=== PATIENT | female | born 2005 | race Caucasian/White ===

== ENCOUNTER 2024-08-03 06:21 | Day surgery (SDC) | payer BC, SELFPAY ==
[2024-08-03] VITALS (15 sets, daily range): BP systolic 107–133; BP diastolic 49–73; BMI 30.4
[2024-08-03] MEDS: CELEBREX 200 MG PO (14:40)
[2024-08-03] MEDS: TYLENOL 1000 MG PO (14:41)
[2024-08-03] MEDS: ROXICODONE 5 MG PO ×2 (20:50→23:54)
--- NOTE | 2024-08-03 21:43 | W.PN.SURGUPD ---
Surgical Update
Surgical Update
18 yo F s/p R ankle fracture ORIF, post op admitted for pain control
-Ancef while inpatient
-Strict NWB to RLE
-PT/OT
-Dressings to remain C/D/I
-Anticipate DC pending pain control and PT eval
--- NOTE | 2024-08-03 21:55 | SUR.PHASEI ---
phase II recovery started in PACU - when bringing pt's family to bedside; they stated they want patient admitted overnight. Stated Dr pavon said it was their choice. patient's pain is controlled with roxicodone, eating, no nausea, patient wanted
to go home. Dr Pavon called. Dr pavon calling hospitalist to admit patient. Report to Neptali MCINTOSH at [phone].
--- NOTE | 2024-08-03 22:48 | HPS.HSE ---
Family Physician
-
Family Physician: INTER[facility] UNKNOWN - PT NOT
Chief Complaint
-
Ankle Fracture
History of Present Illness
Patient is a 18y F with PMH significant for anxiety / depression, POTS, RLS and recent trimalleolar fracture of the R ankle who presents to today for scheduled ORIF of the R ankle. Patient underwent procedure today which was uneventful. In the
PACU, patient continued to complain of uncontrolled pain and will be monitored overnight for pain control / supportive care.
Patient has no prior surgical history.
She denies any CV history.
Medical History
Past Medical History
Past Medical History: Reports Other
Additional Past Medical History:
Anxiety / Depression
POTS
RLS
IBS
Possible PCOS
Past Surgical History: Reports Other
Additional Past Surgical History:
Right Ankle ORIF (08/03/24)
Social History
Tobacco: Non-smoker
Alcohol: Occasional
Drug: Other (Occ medicinal marijuana.)
Family History
Family History: Other (Mother: Thyroid disease Father: Anxiety / depression, DM-II, A-Fib)
Allergies / Home Medications
Allergies reflects when Allergies were last updated in [employer].
Home Medications with original date entered in [employer]
Allergy/Medication List:
Allergies
Allergy/AdvReac Type Severity Reaction Status Date / Time
latex Allergy Rash Verified 08/03/24 14:29
Home Medications
Ph Balance 1 cap PO DAILY 07/31/24
acetaminophen 500 mg tablet 1,000 mg PO Q6H PRN pain 07/31/24
apple cider vinegar 1 tab PO DAILY 07/31/24
fluvoxamine 150 mg capsule,extended release 24 hr 150 mg PO BID 07/31/24
inulin-sorbitol 2 gram chewable tablet 1 tab PO DAILY 07/31/24
magnesium 1 tab PO DAILY 07/31/24
multivitamin 1 tab PO DAILY 07/31/24
Review of Systems
-
History Source: Patient
A 12 point ROS was completed and negative except as noted: Yes
Constitutional: Denies Fever or Chills
Respiratory: Denies Cough or Trouble Breathing
Cardiac: Denies Chest Pain or Palpitations
Abdomen/GI: Denies Abdominal Pain, Nausea or Vomiting
: Denies Dysuria or Flank Pain
Musculoskeletal: Reports Joint Pain
Neurological: Denies Dizzy or Headache
Physical Exam
Vital Signs
Vital Signs
Temp Pulse Resp BP Pulse Ox
98.0 F 82 16 113/58 97
08/03/24 21:30 08/03/24 22:15 08/03/24 22:15 08/03/24 22:15 08/03/24 22:15
Physical Exam
General: Other (18y F in no acute distress.)
HEENT: Moist mucous membranes
Respiratory: Clear; No Wheezes, Rales or Rhonchi
Cardiac: S1/S2 and Regular Rhythm; No Murmur
Musculoskeletal: No Clubbing, No Cyanosis and Other (Wrap in place from R knee to toes. Sensation returning in digits s/p nerve block(s).)
Impression/Plan
-
A/P: Patient is a 18y F with PMH significant for anxiety / depression, POTS and recent ankle fracture who presented to for ankle ORIF.
Trimalleolar Fracture R Ankle
s/p ORIF R Ankle (08/03/24)
- Observe overnight for pain control.
- Post-op care / instructions per Ortho / Pod.
- NWB RLE.
- Continue Ancef while in hospital.
Anxiety / Depression
- Continue home fluvoxamine.
Code Status: Full
[2024-08-03] MEDS: ANCEF 10 IV (23:55)
[2024-08-04] VITALS (8 sets, daily range): BP systolic 101–135; BP diastolic 56–67; PULSE 65; O2SAT 98–99
[2024-08-04] MEDS: TYLENOL 1000 MG PO ×2 (01:55→14:15)
[2024-08-04] MEDS: DILAUDID 0.5 MG IV (02:57)
[2024-08-04] MEDS: ANCEF 10 IV (08:10)
[2024-08-04] MEDS: ROXICODONE 5 MG PO (09:00)
--- NOTE | 2024-08-04 09:44 | W.PN.HOSP.TC ---
Today's Communication/Plan
-
Discharge today
Assessment / Plan
Assessment / Plan
A/P: Patient is a 18y F with PMH significant for anxiety / depression, POTS and recent ankle fracture who presented to for ankle ORIF.
Trimalleolar Fracture R Ankle
S/p ORIF R Ankle (08/03/24)
- Post-op care / instructions per Ortho / Pod
- NWB RLE
- Pain improved, she states she has pain medication sent to her pharmacy by podiatry
- Medically stable for discharge today, follow-up with podiatry in the office in 2-3 weeks
Anxiety / Depression
- Continue home fluvoxamine
Code Status: Full
Physical Exam
General: Obese, no acute distress
HEENT: Normocephalic, Atraumatic, EOMI, MMM
Respiratory: Clear to Auscultation bilaterally
Cardiac: Normal S1/S2, Regular Rate and Rhythm
GI: Soft, Nontender, Nondistended, Normal Bowel Sounds
Extremities: No Clubbing, Cyanosis, or Edema
Neuro: Nonfocal/Grossly Intact
Psych: Calm, Cooperative
Derm: No Visible lesions
Anticipated Discharge: Today
Subjective/Interval History
-
Date of Service: August 04, 2024
Patient reports feeling better. Her right ankle pain is currently 3 out of 10 in intensity. Denies chest pain, denies shortness of breath. No fever, no vomiting.
Objective Data
-
Vital Signs:
Vital Signs
Temp Pulse Resp BP Pulse Ox
98.4 F 66 16 112/63 98
08/04/24 07:45 08/04/24 07:45 08/04/24 07:45 08/04/24 07:45 08/04/24 07:45
I&O
08/03/24 08/04/24 08/05/24
06:59 06:59 06:59
Intake Total 1180 / 1180
Balance 1180 / 1180
[2024-08-04] MEDS: MIRALAX 17 GRAMS PO (11:02)
--- NOTE | 2024-08-04 11:24 | CM ---
quality assurance test program manager reviewed patient's chart and met with patient and patient is a student at [employer] and is currently living with parents, in a 2 story home, per patient there is a stair glide to 2nd floor in home that she has been using. Patient is
independent with adl's and was using crutches prior to admission, physical therapy saw patient today and are recommending walker, walker issued to patient.
PCP: Dr. Eddy
Pharmacy: [facility] in [place]
Plan; Home with family when stable.
--- NOTE | 2024-08-04 14:31 | W.DCSUMMARY ---
Discharge Summary
Discharge Data
Date of Admission: 08/03/24
Date of Discharge: 08/04/24
-
Pending Results: No
Hospital Course
Discharge diagnosis:
Right ankle fracture status post open reduction internal fixation
Hospital course:
18-year-old female with a past medical history of anxiety / depression, POTS, RLS and recent trimalleolar fracture of the R ankle who was placed in observation after her right ankle surgery due to uncontrolled pain. Patient was treated with IV
Dilaudid, and oxycodone as needed. By the following day, her pain was well-controlled. She was seen in conjunction with PT, and issued a rolling walker. She is medically stable for discharge. She needs to follow-up with her surgeon in 2-3 weeks.
Disposition: Home self-care
Discharge planning: Required 34 minutes
Discharge Plan
-
Patient Disposition: Home (Routine Discharge)
Discharge Diagnosis/Procedures: Right ankle fracture status post surgery
Condition: Good
Diet: Regular
Activity: As tolerated and Do not bear weight R leg
Driving Restrictions: Not until seen by your Dr
Activity Restrictions/Additional Instructions:
You may take xius-lae-vbxipta acetaminophen 1000 mg every 6 hours as needed for pain.
Do not exceed more than 4000 mg in 24 hours.
You may also take ufks-oxa-vgooqwy ibuprofen 800 mg 3 times a day as needed for pain.
Do not exceed more than 2400 mg in 24 hours.
Follow-up with your primary care doctor in 1 week, and your surgeon in 2-3 weeks.
Referrals:
Tien Pavon DPM [Active] - in two to three weeks
UNKNOWN - PT NOT,INTERVIEWE [Family Provider] -
Prescriptions:
New
ibuprofen 200 mg tablet
800 mg PO Q8H PRN (Reason: Pain) Qty: 30 0RF
Continued
acetaminophen 500 mg Tablet
1,000 mg PO Q6H PRN (Reason: pain)
fluvoxamine 150 mg Capsule,Extended Release 24hr
150 mg PO BID
multivitamin Tablet
1 tab PO DAILY
inulin-sorbitol 2 gram Tablet,Chewable
1 tab PO DAILY
Ph Balance
1 cap PO DAILY
apple cider vinegar
1 tab PO DAILY
magnesium
1 tab PO DAILY
Discharge Orders:
Discharge Patient (As Directed); Ordered 08/04/24
Ordered By: Ren Mercado
Discharge Date and Time
Discharge Date/Time: 08/04/24 15:04
Print Language: FIJIAN
== END 2024-08-04 15:04 | disposition home or self-care (01) ==
LOC: SDS 06:21
PROVIDERS: ATTENDING PHYSICIAN Family Medicine
DX: S82.851A Displaced trimalleolar fracture of right lower leg, initial encounter for closed fracture (principal); S93.431A Sprain of tibiofibular ligament of right ankle, initial encounter; W01.0XXA Fall on same level from slipping, tripping and stumbling without subsequent striking against object, initial encounter
CPT/HCPCS: 27822; 27829; 73610; 76000; 97116; 97162; 97166; 97535; C1713

== ENCOUNTER → 2024-11-02 18:21 | Outpatient (REF) | payer BC, SELFPAY | LOC: RAD 18:21 | PROVIDERS: ATTENDING PHYSICIAN Student in an Organized Health Care Education/Training Program; FAMILY PHYSICIAN Family Medicine | DX: M79.661 Pain in right lower leg (principal) | CPT/HCPCS: 93971 ==

== ENCOUNTER → 2025-02-11 17:15 | Outpatient (REF) | payer BC, SELFPAY | LOC: RAD 17:15 | PROVIDERS: ATTENDING PHYSICIAN Nurse Practitioner Adult Health | DX: R10.30 Lower abdominal pain, unspecified (principal) | CPT/HCPCS: 76830; 76856 ==